=== PATIENT | female | born 1935 | race Caucasian/White ===

== ENCOUNTER → 2016-11-02 | Outpatient (CLI) | payer MEDICARE, BC ==
[~2016-11-02] MED LIST: DARVOCET-N 1001 EACH PO; MACROBID 100MG100 MG PO
[2016-11-02 10:04] LABS: LYMPH # 1.5 K/mm3 (0.7-4.5); LYMPH % 41.8 % (10-50.0)
[2016-11-02 10:12] LABS: BUN 18 mg/dL (7-18); GFR (ESTIMATED) 53 ML/MIN (59-)
== END ==
LOC: LAB 09:24
PROVIDERS: Nurse Practitioner Obstetrics & Gynecology
DX: N95.0 Postmenopausal bleeding (principal); N84.1 Polyp of cervix uteri; D25.9 Leiomyoma of uterus, unspecified

== ENCOUNTER → 2016-12-21 | Outpatient (CLI) | payer MEDICARE, BC ==
--- NOTE | 2016-12-25 13:22 | RADIOLOGY REPORT PS360 ---
US [id number] HISTORY: HEMATURIA,DYSURIA, NEPHROLITHIASIS Patient Age: 81 years: Female Ordering Physician: Jaya Healy MD TECHNIQUE: Ultrasound both kidneys COMPARISON :CT abdomen and pelvis from 12/13/2016 FINDINGS No hydronephrosis on either kidney. Cortex is actually fairly well-maintained bilaterally with only some borderline thinning throughout the right kidney. RIGHT KIDNEY 9.8 cm length as 4.6 x 4.5 cm. Small debris-filled cyst 1.2 cm x 1.3 cm off the mid to upper portion right kidney. This is seen on prior CT Right kidney is better visualized than the left. LEFT KIDNEY. 11.1 cm x 5.6 cm x 4.4 cm. The likely hyperdense cyst off the lower pole of the left kidney is not identified and not imaged on today's ultrasound. There was a small hypodense cyst cyst seen in this area on the 2009 CT and is likely become hyperdense, & hemorrhagic in the interval. Only scant increased size.. Suggest follow-up CT in 6 months [address] also question a small indeterminate density area 18 mm mm size at the medial aspect of the lower left kidney. This was not specifically seen or evaluated with today's ultrasound either... No cyst identified here. This was likely present in April 2009 is with only 2-3 mm increased size in interval supporting benign character.. Currently measuring up to 22 mm maximally 10 18 mm. Indeterminate density 19 hu Bosniak 2. Warrants 6 month follow-up CT with contrast.. Small echogenic focus at the midportion left kidney corresponds with the smaller 3.5 mm stone calcification seen on recent CT at midportion left kidney. No associated obstructive uropathy. *Last wall the technologist question this is a vague 1.2 cm area at midportion left kidney which was not seen on CT. It is similar density to the cortex but with slightly different rim type architecture question.Bosniak 2 Again a follow-up CT with contrast would be most optimal on this patient.. IMPRESSION: No hydronephrosis. No acute findings RIGHT KIDNEY. Small benign cyst. Upper pole 1.2 cm. Mild cortical thinning LEFT KIDNEY. Small 3.5 mm calculus midportion left kidney nonobstructive as seen on recent CT.. The small hyperdense cyst at the lower pole left kidney seen on CT is not identified on today's ultrasound 18 x 22 mm indeterminate ovoid area of medial tail of left kidney noted on recent CT is not identified on today's ultrasound but I believe was likely present in 2010 with only scant incremental enlargement, which supports indents benign character despite intermediate density. Recommend follow-up CT with contrast, in 6 months given its indeterminate character.. . May benefit from a repeat ultrasound left kidney on that visit as well . *Suggest patient return for repeat ultrasound of the left kidney suggested to further evaluate these features as well
== END ==
LOC: RAD 12:37
DX: R31.0 Gross hematuria (principal); R30.0 Dysuria; N20.0 Calculus of kidney

== ENCOUNTER → 2017-01-09 | Outpatient (CLI) | payer MEDICARE, BC ==
[~2017-01-09] MED LIST changes: +AMLO5TAB PO; +ATORVASTATIN CA20 MG PO; +BENAZEPRIL HYDR40 MG PO; +GLIPIZIDE 5MG TA5 MG PO; +INDAPAMIDE1.25 MG OR; +METFORMIN 500M500 MG PO; +METOPROLOL TAR100 MG PO; +TYLENOL PM EX-1 EACH PO
[2017-01-09 11:02] LABS: BUN 10 mg/dL (7-18); GFR (ESTIMATED) 48 ML/MIN (59-)
--- NOTE | 2017-01-10 12:16 | RADIOLOGY REPORT PS360 ---
CT ABD PELVIS W/WO CONTRAST HISTORY: HEMATURIA Patient Age: 81 years: Female Ordering Physician: Pineda Cheng MD TECHNIQUE: Helical CT scans abdomen and pelvis pre and postcontrast. Contrast images performed at 60 seconds and 10 minute delayed following 75 cc Isovue-370 Oral Contrast: None COMPARISON : 12/13/2016 CT abdomen without contrast As well as recent ultrasound from this facility. There is also an outside CT January 04, 2017. FINDINGS: Lower thorax: There is a large hiatal hernia containing majority estimate 2/3 of thestomach. There is now a small right pleural effusion which is developed since previous studies with some additional basilar atelectasis on right.. The liver, spleen, adrenal glands, and pancreas has an unremarkable unenhanced CT appearance. Multiple faceted calcified gallstones present within a contracted gallbladder.. Larger stones measuring 2.3 cm No hydronephrosis or obstructing ureteral calculi evident. Small less than 3 mm punctate calculus seen at the midportion left kidney. LEFT KIDNEY Lower pole LEFT KIDNEY is a 20 mm thick-walled cyst or nodule extending medially.. It appears to have thick wall which shows moderate enhancement of the moderate thickening of wall.. Baseline density in the range of 30-35. Postcontrast measuring up to 80hu at the thickened wall. This is a indeterminate density or complex cyst. I would assigned Bosniak [address], with less likely but possible Bosniak 2F characterization (*Added Note: With the final review of the entire patient's file I have found that there was a April 20092009 CT abdomen. . This nodular density can be seen seen on that study and is shown only incrementally if any progression in the interval supporting its indolent nature and thus follow-up may be an option given this longer-term stability. Please note this 2010 CT study for comparison.) There is also a small 12 mm hyperdense cyst lower pole left kidney... No enhancement post contrast... Basically 65-70 hu pre-and postcontrast Just inferior to this is a small 11 t benign cyst at cortex of lower pole. Small 3.5 mm nonobstructing calculus midportion left kidney. RIGHT KIDNEY small benign renal cyst at the lateral aspect upper portion right kidney. This slightly flat cyst measuring 2.2 cm transverse x 11 mm AP., Shape. Incidentally note a a generous side prominent ovarian vein on left . There is no retroperitoneal adenopathy nor mesenteric adenopathy. Pelvis uterus appears normal size with no adnexal masses. Bladder unremarkable. Moderate to generous stool throughout the right and transverse colon. Small bowel unremarkable. Osseous structures.. No focal lesions. Degenerative changes spine . ADDENDUM. Repeat ultrasound images through the left kidney this morning show more likely a solid character of the area in question just inferior to the renal pelvis from the medial aspect left kidney. The 2 benign-appearing cyst towards lower pole are also noted on this repeat ultrasound. IMPRESSION: 1. LEFT KIDNEY: There is a ~2 cm thick walled enhancing primarily solid nodule with small cystic area centrally seen extending from the medial aspect eft kidney., This is located Just inferior to the renal pelvis..... With this CT appearance would assigned as Bosniak 3 here. However on final review of patient's file, I found a April 2009 CT which shows this nodule. It has shown only scant if any progression since 2009 supporting its indolent nature... 2. LEFT KIDNEY. Other minor observations: -At lower pole left kidney there is also a 11 mm benign cyst and small hyperdense cyst off lower pole. These do not enhance and appear to be benign cyst -. There is a. 3.5 mm not obstructive calculus midportion left kidney 4. RIGHT KIDNEY. Small benign cyst along posterior upper pole . 5....* Right Pleural Effusion , w/ atelectasis, has developed since are previous November 2016 CT. (However now note pleural effusion only slightly larger vs 2016 study [facility] now available) *. Still Would Recommend PA & lateral chest further evaluate this small right pleural effusion. 6.. Large hiatal hernia again noted 7 Cholelithiasis.. Multiple faceted gallstones again noted .
== END ==
LOC: RAD 10:45
PROVIDERS: Urology
DX: R31.9 Hematuria, unspecified (principal); R30.0 Dysuria
CPT/HCPCS: Q9967

== ENCOUNTER → 2017-01-10 | Outpatient (CLI) | payer MEDICARE, BC ==
--- NOTE | 2017-01-15 14:53 | RADIOLOGY REPORT PS360 ---
ULTRASOUND NO CHARGE HISTORY: Evaluation left renal mass Patient Age: 81 years: Female Ordering Physician: Jaya Healy MD TECHNIQUE: Ultrasound both kidneys initially performed 12/21/2016 with repeat images left kidney performed on 2116. COMPARISON : 12/21/2016 renal ultrasound as well as recent CT with and without contrast. FINDINGS Repeat images left kidney performed at no additional charge, to complete and compliment the previous ultrasound from 12/21/2016. Recent CT showed a slightly enhancing mixed density mass at the medial aspect of left kidney just inferior to the left renal pelvis. This difficult to visualize with ultrasound. What is seen on the additional images today measuring approximately 2 cm just below the left renal pelvis. It appears solid on ultrasound but no back wall enhancement. Mild shadowing. It has concerning solid mildly enhancing character on recent CT, and appears solid rather than cystic on this repeat ultrasound. However would note that a similar density was seen here on 2009 CT with only very minimal progression since 2009. (-see discussion on recent CT abdomen report) Other images today show a small benign-appearing film cyst towards lower pole left kidney, 1.4 cm size. At the midportion left kidney is a 1.1 cm cyst. It these match the 2 small 9 cystic areas at lower pole left kidney seen on recent CT. Continuing superiorly the area previously questioned at cortex midportion left kidney is not not evident on today's ultrasound believe is merely a spurious appearance at the midportion left kidney/ at the base of, a a column of Gaetano seen here(a thumb-like area of cortex encountered at the mid left kidney SUMMARY.-Results were included/discussed recent ct abdomen The intermediate density mass at the medial left kidney, just below the renal pelvis, discussed on recent CT appears solid on this ultrasound.. On imaging this renal masses is a significant area of concern, however I also would note is relatively stable since 2009 supports its more likely indolent nature.
== END ==
LOC: RAD 08:56
DX: R31.0 Gross hematuria (principal); R30.0 Dysuria

== ENCOUNTER → 2017-01-18 | Outpatient (CLI) | payer MEDICARE, BC ==
--- NOTE | 2017-01-18 12:27 | RADIOLOGY REPORT PS360 ---
PROCEDURE: 2-D M-mode and color Doppler study INDICATIONS FOR THE TEST: Chest pain COPD Heart Murmur Tobacco Smoking Palpitations Fatigue Syncope Edema Hypertension+Diabetes Mellitus Rheumatic Fever SOB+HERNADNEZ Obesity Hyperlipidemia+ Family History HD Additional History Pleural effusion PATIENT INFORMATION HEIGHT: 65 WEIGHT:213 GENDER: Female B/P:145/76 2-D/M-MODE INTERPRETATION: 2-D MEASUREMENTS OBSERVED VALUES IN CMS Right Ventricular Dimension (RVDd) 2.2 Interventricular Septum (Thickness)(IVsd) 1.5 Left Ventricular Internal Dimensions(LVIDd) 4.4 Left Ventricular Posterior Wall (Thickness)(LVPWd) 1.5 Aortic Root 3.1 Aortic Cusp Separation 1.4 Left Atrial Dimensions (LAD) 4.7 2D 1. The left atrium is mildly enlarged, left ventricle is normal size, there is mild concentric left ventricular hypertrophy present, visually estimated ejection fraction 55% with no obvious regional wall motion abnormality. 2. The right atrium is normal size, right ventricle is mildly enlarged with normal contractility. 3. The aortic valve is thickened and calcified, leaflet continue to display good mobility. 4. The mitral and tricuspid valve leaflets are minimally thickened. 5. The pulmonic valve is poorly visualized. 6. No significant pericardial effusion noted. DOPPLER INTERROGATION: Doppler interrogation of the aortic, mitral and tricuspid valvular presence of mild mitral and tricuspid regurgitation, tricuspid regurgitant jet velocity insufficient for calculation of the right ventricular systolic pressure, grade 1 diastolic dysfunction seen with tissue Doppler evidence of raised left atrial pressure. CONCLUSION: 1. Mildly enlarged left atrium, normal left ventricular size, mild concentric left ventricular hypertrophy, visually estimated ejection fraction 55% with no obvious regional wall motion abnormality, grade 1 diastolic dysfunction seen with tissue Doppler evidence of raised left atrial pressure. 2. Thickened and calcified aortic valve without aortic stenosis aortic insufficiency. 3. Mild mitral and tricuspid regurgitation. Tricuspid regurgitant jet velocity insufficient for calculation of the right ventricular systolic pressure. 4. No significant pericardial effusion noted.
--- NOTE | 2017-01-18 12:35 | RADIOLOGY REPORT PS360 ---
CHEST(2 VIEWS-NOT PORTABLE) HISTORY: PLEURAL EFFUSION ORDERING PHYSICIAN: Ashly Vargas APRN PATIENT AGE: 81 years COMPARISON: 01/04/2017 FINDINGS: There is cardiomegaly without failure. Hiatal hernia is noted with air-fluid level in retrocardiac region.. There is a small right pleural effusion. The right lower lobe consolidation has improved since the previous exam. No acute bony abnormalities. IMPRESSION: Small right pleural effusion with improvement in right basilar alveolar disease
== END ==
LOC: RT 10:56
DX: R06.02 Shortness of breath (principal); J90 Pleural effusion, not elsewhere classified

== ENCOUNTER → 2017-01-29 | Day surgery (SDC) | payer MEDICARE, BC ==
--- NOTE | 2017-01-29 10:20 | Operative Note-Urology ---
Procedure/Operative Record Procedure DATE OF PROCEDURE: 01/29/17 PREOPERATIVE DIAGNOSIS: Hematuria POSTOPERATIVE DIAGNOSIS: Same PROCEDURE PERFORMED: Flexible cystoscopy SURGEON: Pineda Cheng ANESTHESIA: Intraurethral Xylocaine jelly BRIEF HISTORY: Patient is 81 years of age and 2 months ago had an episode of gross hematuria. She has had radiographic studies. She does have a indeterminate mass of the RIGHT kidney. 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 It seems to be rather stable in size. She presents today for cystoscopy to rule out intravesical pathology. OPERATIVE NOTE: After satisfactory position in the supine orientation the genital area was prepped and draped in standard fashion. Xylocaine jelly was instilled in the urethra. Flexible cystoscope was introduced. Bladder was field. The entire bladder mucosa was inspected. There is no evidence of bladder tumors. She had some slight chronic trigonitis. Ureteral orifices were situated in the normal position and appeared reflux clear urine. Scope was retroflexed to the bladder neck. No abnormal mucosal lesions were noted of significance. Scope was slowly withdrawn. She did have a hypervascular urethra but no evidence of stricture or stenosis. Meatus appeared unremarkable. EBL (ml): 0 IMPRESSION: Previous gross hematuria of undetermined etiology apparently benign PLAN: Follow-up 6 months. No further intervention at this time. at 1012
[2017-01-29 10:53] VITALS: BP 155/94
== END ==
LOC: SDC 08:00
PROC: 0TJB8ZZ Inspection of Bladder, Via Natural or Artificial Opening Endoscopic (ICD-10-PCS; principal; 2017-01-29)
DX: R31.9 Hematuria, unspecified (principal)